=== PATIENT | male | born 1990 | race Two or more races ===

== ENCOUNTER 2019-02-25 15:02 | Emergency (ER) | payer OTHER ==
[~2019-02-25] VITALS: Ht 165.1 cm; Wt 84.4 kg
== END 2019-02-25 18:03 | disposition home or self-care (01) ==
LOC: ER 15:02
DX: R21 Rash and other nonspecific skin eruption (principal)

== ENCOUNTER 2019-04-30 16:24 | Emergency (ER) | payer OTHER ==
[~2019-04-30] VITALS: Ht 165.1 cm; Wt 79.4 kg
[2019-04-30] MEDS ORDERED: DICLOFENAC SODI75 MG PO (17:04)
== END 2019-04-30 18:17 | disposition home or self-care (01) ==
LOC: ER 16:24
DX: M54.89 Other dorsalgia (principal)